=== PATIENT | male | born 1955 | race Caucasian/White ===

== ENCOUNTER → 2017-11-02 | Outpatient (CLI) | payer BC | LOC: M WUC 09:05 | DX: S40.021A Contusion of right upper arm, initial encounter (principal); S43.401A Unspecified sprain of right shoulder joint, initial encounter; X58.XXXA Exposure to other specified factors, initial encounter; Y92.9 Unspecified place or not applicable; Y93.9 Activity, unspecified; M19.011 Primary osteoarthritis, right shoulder | CPT/HCPCS: 73030 ==

== ENCOUNTER → 2019-07-27 | Outpatient (REF) | payer BC | LOC: M LAB REF 19:30 | PROVIDERS: ATTEND Surgery | DX: L72.0 Epidermal cyst (principal) ==

== ENCOUNTER 2021-01-20 13:11 | Emergency (ER) | payer BC ==
[~2021-01-20] VITALS: Ht 170.2 cm; Wt 87.4 kg
[2021-01-20] MEDS ORDERED: VITMTA PO (13:19)
[2021-01-20] MEDS ORDERED: POTA1TAB14 PO (13:19)
[2021-01-20] MEDS ORDERED: HYDR12.55 PO (13:19)
[2021-01-20] MEDS ORDERED: LISI40TA4 PO (13:19)
[2021-01-20] MEDS ORDERED: AMLO1TAB25 PO (13:19)
[2021-01-20] MEDS ORDERED: METO1TAB7 PO (13:19)
[2021-01-20] MEDS ORDERED: BOOSTRIX/ADACEL VACCINE (DIPHTH/PERTUSS/ACELL/TETANUS) 0.5ML SYR IM ONE (13:45)
[2021-01-20] MEDS ORDERED: BACI500O21 TOP (13:51)
[2021-01-20 14:25] VITALS: BP 144/76
== END 2021-01-20 14:27 | disposition home or self-care (01) ==
LOC: M ED 13:11
DX: T21.23XA Burn of second degree of upper back, initial encounter (principal); T31.0 Burns involving less than 10% of body surface; I10 Essential (primary) hypertension; X06.2XXA Exposure to ignition of other clothing and apparel, initial encounter; X03.0XXA Exposure to flames in controlled fire, not in building or structure, initial encounter; Z79.899 Other long term (current) drug therapy; Y92.9 Unspecified place or not applicable; Y93.9 Activity, unspecified; Y99.9 Unspecified external cause status

== ENCOUNTER → 2022-01-11 | Outpatient (REF) | payer BC ==
[~2022-01-11] MED LIST: AMLO1TAB25 PO; BACI500O21 TOP; HYDR12.55 PO; LISI40TA4 PO; METO1TAB7 PO; POTA1TAB14 PO; VITMTA PO
== END ==
LOC: M LAB REF 16:29
PROVIDERS: ATTEND Internal Medicine
DX: R21 Rash and other nonspecific skin eruption (principal); I11.9 Hypertensive heart disease without heart failure

== ENCOUNTER → 2023-02-04 | Outpatient (REF) | payer MEDICARE, OTHER ==
[~2023-02-04] MED LIST changes: +POTA-298 PO; -POTA1TAB14 PO
[2023-02-04 17:36] LABS: IRON (FE) 54 UG/DL (65-175); PERCENT SATURATION 15.9 % (19.7-50.0); TOTAL IRON BINDING CAPACITY 340 UG/DL (250-425)
[2023-02-04 17:40] LABS: FOLATE > 24.0 NG/ML (>5.4); VITAMIN B12 LEVEL 514 PG/ML (211-911)
== END ==
LOC: M LAB REF 16:26
PROVIDERS: ATTEND Internal Medicine
DX: D50.9 Iron deficiency anemia, unspecified (principal)

== ENCOUNTER → 2023-03-07 | Outpatient (REF) | payer MEDICARE, OTHER | LOC: M LAB REF 12:04 | PROVIDERS: ATTEND Internal Medicine | DX: L03.031 Cellulitis of right toe (principal) ==

== ENCOUNTER → 2023-03-14 | Outpatient (REF) | payer MEDICARE ==
[2023-03-14 18:54] LABS: SOURCE, BODY FLUID LFT KNEE; SYNOVIAL FLUID COLOR YELLOW (COLORLESS)
[2023-03-14 19:01] LABS: CRYSTALS, BODY FLUID NONE SEEN (NONE SEEN); SOURCE, BODY FLUID CRYSTALS LFT KNEE
== END ==
LOC: M LAB REF 17:31
PROVIDERS: ATTEND Orthopaedic Surgery
DX: M17.11 Unilateral primary osteoarthritis, right knee (principal)

== ENCOUNTER → 2023-03-20 | Outpatient (CLI) | payer MEDICARE ==
[2023-03-20 17:43] LABS: BASO % 0.5 % (0.0-1.0); EOS # 0.2 10^3/uL (0.0-0.5); EOS % 2.1 % (0.0-3.0); HEMATOCRIT 34.8 % (42.0-52.0); HEMOGLOBIN 11.8 g/dl (13.5-17.5); LYMPH % 23.4 % (24.0-44.0); MEAN CORPUSCULAR HEMOGLOBIN 32.6 pg (27.0-33.0); MEAN CORPUSCULAR HGB CONC 33.9 g/dl (32.0-36.5); MEAN CORPUSCULAR VOLUME 96.1 fl (80.0-96.0); MONO # 1.1 10^3/uL (0.0-0.8); MONO % 12.8 % (2.0-8.0); NEUTROPHILS # 5.2 10^3/uL (1.5-8.5); NEUTROPHILS % 60.8 % (36.0-66.0); PLATELET COUNT, AUTOMATED 333 10^3/uL (150-450); RED BLOOD COUNT 3.62 10^6/uL (4.30-6.10); WHITE BLOOD COUNT 8.5 10^3/uL (4.0-10.0)
[2023-03-20 18:10] LABS: ERYTHROCYTE SEDIMENTATION RATE 31 mm/hr (0-20)
== END ==
LOC: M PLALAB 16:44
PROVIDERS: ATTEND Orthopaedic Surgery
DX: M17.12 Unilateral primary osteoarthritis, left knee (principal)

== ENCOUNTER → 2023-03-28 | Outpatient (REF) | payer MEDICARE ==
[2023-03-28 17:55] LABS: SOURCE, BODY FLUID LFT KNEE; SYNOVIAL FLUID COLOR YELLOW (COLORLESS)
[2023-03-28 18:02] LABS: SOURCE, BODY FLUID GLUCOSE LFT KNEE
[2023-03-28 18:10] LABS: CRYSTALS, BODY FLUID NONE SEEN (NONE SEEN); SOURCE, BODY FLUID CRYSTALS LFT KNEE
== END ==
LOC: M LAB REF 17:16
PROVIDERS: ATTEND Orthopaedic Surgery
DX: M25.462 Effusion, left knee (principal)

== ENCOUNTER 2023-06-04 07:50 | Day surgery (SDC) | payer MEDICARE ==
[~2023-06-04] VITALS: Ht 170.2 cm; Wt 76.5 kg
[~2023-06-04 07:50] MED LIST changes: +FERR325T19 PO; +NS 1,000 ML IV ONE; +OMEP40CA5 PO; +SPIR-10 PO; +fentaNYL 100 MCG/2 ML INJECTION As Ordered ONE; +propofoL 200 MG/20 ML VIAL As Ordered ONE
[2023-06-04] MEDS ORDERED: propofoL 200 MG/20 ML VIAL As Ordered ONE (08:25)
[2023-06-04] MEDS ORDERED: ePHEDrine SULFATE 25 MG/5 ML(5MG/ML) SYRINGE As Ordered ONE (08:50)
[2023-06-04 08:59] VITALS: TEMP 96
[2023-06-04 09:24] VITALS: BP 144/71; O2SAT 98
== END 2023-06-04 09:31 | disposition home or self-care (01) ==
LOC: M OPP 07:50
PROVIDERS: ATTEND Surgery
DX: K64.4 Residual hemorrhoidal skin tags (principal); D50.9 Iron deficiency anemia, unspecified; K22.89 Other specified disease of esophagus; K31.89 Other diseases of stomach and duodenum; K31.A11 Gastric intestinal metaplasia without dysplasia, involving the antrum; K31.A13 Gastric intestinal metaplasia without dysplasia, involving the fundus; Z79.899 Other long term (current) drug therapy
CPT/HCPCS: 43239; 45378; 88305; J3010

== ENCOUNTER → 2024-02-12 | Outpatient (CLI) | payer MEDICARE ==
[~2024-02-12] MED LIST changes: -NS 1,000 ML IV ONE; -fentaNYL 100 MCG/2 ML INJECTION As Ordered ONE; -propofoL 200 MG/20 ML VIAL As Ordered ONE
== END ==
LOC: M PLAIMG 08:18
PROVIDERS: ATTEND Nurse Practitioner Family
DX: I35.0 Nonrheumatic aortic (valve) stenosis (principal)

== ENCOUNTER → 2024-03-01 | Outpatient (CLI) | payer MEDICARE ==
[2024-03-01 09:01] LABS: HEMATOCRIT 38.5 % (42.0-52.0); HEMOGLOBIN 13.1 g/dl (13.5-17.5); MEAN CORPUSCULAR HEMOGLOBIN 32.8 pg (27.0-33.0); MEAN CORPUSCULAR VOLUME 96.3 fl (80.0-96.0); PLATELET COUNT, AUTOMATED 251 10^3/uL (150-450); WHITE BLOOD COUNT 6.2 10^3/uL (4.0-10.0)
[2024-03-01 09:07] LABS: ERYTHROCYTE SEDIMENTATION RATE 30 mm/hr (0-20)
[2024-03-01 09:27] LABS: ALBUMIN 4.2 G/DL (3.2-5.2); ALKALINE PHOSPHATASE 118 U/L (46-116); ALT/SGPT 21 U/L (7.0-40); AST/SGOT 16 U/L (<34); BILIRUBIN,TOTAL 0.2 MG/DL (0.3-1.2); BLOOD UREA NITROGEN 37 MG/DL (9-23); CARBON DIOXIDE LEVEL 22 MMOL/L (20-31); CHLORIDE LEVEL 112 MMOL/L (98-107); CREATININE FOR GFR 0.94 MG/DL (0.70-1.30); GLOMERULAR FILTRATION RATE > 60.0 (>49); GLUCOSE, FASTING 85 MG/DL (74-106); POTASSIUM SERUM 4.3 MMOL/L (3.5-5.1); SODIUM LEVEL 141 MMOL/L (136-145); TOTAL PROTEIN 7.3 G/DL (5.7-8.2)
[2024-03-01 09:30] LABS: INR 1.05; PROTHROMBIN TIME 13.4 SECONDS (12.5-14.5)
== END ==
LOC: M RAD 07:45
PROVIDERS: ATTEND Orthopaedic Surgery
DX: Z01.818 Encounter for other preprocedural examination (principal); Z79.01 Long term (current) use of anticoagulants

== ENCOUNTER → 2024-08-30 | Outpatient (CLI) | payer MEDICARE | LOC: M CARPUL 10:02 | PROVIDERS: ATTEND Internal Medicine | DX: I35.0 Nonrheumatic aortic (valve) stenosis (principal) ==

== ENCOUNTER → 2024-10-29 | Outpatient (CLI) | payer MEDICARE ==
[2024-10-29 15:37] LABS: HEMATOCRIT 35.7 % (42.0-52.0); HEMOGLOBIN 12.2 g/dl (13.5-17.5); MEAN CORPUSCULAR HEMOGLOBIN 32.6 pg (27.0-33.0); MEAN CORPUSCULAR HGB CONC 34.2 g/dl (32.0-36.5); MEAN CORPUSCULAR VOLUME 95.5 fl (80.0-96.0); PLATELET COUNT, AUTOMATED 203 10^3/uL (150-450); RED BLOOD COUNT 3.74 10^6/uL (4.30-6.10); WHITE BLOOD COUNT 7.3 10^3/uL (4.0-10.0)
[2024-10-29 15:42] LABS: ERYTHROCYTE SEDIMENTATION RATE 13 mm/hr (0-20)
[2024-10-29 15:54] LABS: INR 0.95
[2024-10-29 16:10] LABS: ALBUMIN 4.3 G/DL (3.2-5.2); ALKALINE PHOSPHATASE 86 U/L (40-129); ALT/SGPT 34 U/L (7.0-40); AST/SGOT 25 U/L (<34); BILIRUBIN,TOTAL 0.4 MG/DL (0.3-1.2); BLOOD UREA NITROGEN 26 MG/DL (9-23); CALCIUM LEVEL 9.7 MG/DL (8.3-10.6); CARBON DIOXIDE LEVEL 26 MMOL/L (20-31); CHLORIDE LEVEL 108 MMOL/L (98-107); CREATININE FOR GFR 0.72 MG/DL (0.70-1.30); GLOMERULAR FILTRATION RATE > 60.0 (>49); GLUCOSE, FASTING 79 MG/DL (74-106); POTASSIUM SERUM 4.3 MMOL/L (3.5-5.1); SODIUM LEVEL 142 MMOL/L (136-145); TOTAL PROTEIN 7.8 G/DL (5.7-8.2)
== END ==
LOC: M RAD 13:51
PROVIDERS: ATTEND Orthopaedic Surgery
DX: Z01.812 Encounter for preprocedural laboratory examination (principal); M17.12 Unilateral primary osteoarthritis, left knee; Z79.899 Other long term (current) drug therapy

== ENCOUNTER 2025-06-04 07:09 | Inpatient (IN) | payer MEDICARE ==
[~2025-06-04] VITALS: Ht 170.2 cm; Wt 79.5 kg
[~2025-06-04 07:09] MED LIST changes: +LISI40TA10 PO; -LISI40TA4 PO
[2025-06-04] MEDS ORDERED: ASPI-226 PO (07:45)
[2025-06-04] MEDS ORDERED: METO1TAB33 PO (07:45)
[2025-06-04 08:07] LABS: BASO # 0.0 10^3/uL (0.0-0.2); BASO % 0.4 % (0.0-1.0); EOS # 0.2 10^3/uL (0.0-0.5); EOS % 2.1 % (0.0-3.0); LYMPH # 1.7 10^3/uL (1.5-5.0); LYMPH % 23.8 % (24.0-44.0); MONO # 1.1 10^3/uL (0.0-0.8); MONO % 15.5 % (2.0-8.0); NEUTROPHILS # 4.1 10^3/uL (1.5-8.5); NEUTROPHILS % 57.9 % (36.0-66.0); PLATELET COUNT, AUTOMATED 305 10^3/uL (150-450)
[2025-06-04] MEDS: NS (Normal Saline) 0.9% 1,000 ML IV ONE ×2 (08:08→09:46)
[2025-06-04 08:35] LABS: ALT/SGPT 40 U/L (7.0-40); AST/SGOT 50 U/L (<34); CALCIUM LEVEL 8.7 MG/DL (8.3-10.6); CARBON DIOXIDE LEVEL 16 MMOL/L (20-31); CHLORIDE LEVEL 108 MMOL/L (98-107); CREATININE FOR GFR 6.12 MG/DL (0.70-1.30); GLOMERULAR FILTRATION RATE 9.3 (>49); POTASSIUM SERUM 4.1 MMOL/L (3.5-5.1); SODIUM LEVEL 140 MMOL/L (136-145)
[2025-06-04] MEDS ORDERED: HOME MED LIST COMPLETE! XX SCH (10:15)
[2025-06-04] MEDS ORDERED: amLODIPine 10 MG TAB PO SCH (12:05)
[2025-06-04 12:27] LABS: CALCIUM LEVEL 8.4 MG/DL (8.3-10.6); CARBON DIOXIDE LEVEL 16.0 MMOL/L (20-31); CHLORIDE LEVEL 115.0 MMOL/L (98-107); CREATININE FOR GFR 4.9 MG/DL (0.70-1.30); GLOMERULAR FILTRATION RATE 12.2 (>49); POTASSIUM SERUM 3.9 MMOL/L (3.5-5.1); SODIUM LEVEL 143.0 MMOL/L (136-145)
[2025-06-04] MEDS: HEPARIN SOD 5000 UNITS/ML 1 ML VIAL/SYRINGE SQ SCH (13:52)
[2025-06-04] MEDS: AZITHROMYCIN 250 MG TABLET PO SCH (13:53)
[2025-06-04 14:10] LABS: KETONE, URINE AUTO RFX NEGATIVE (NEGATIVE); LEUKOCYTE ESTERASE UR AUTO RFX NEGATIVE (NEGATIVE); MUCUS, URINE RFX SMALL (NEGATIVE); NITRITE, URINE AUTO RFX NEGATIVE (NEGATIVE); RBC, URINE AUTO RFX 18 /HPF (0-3); SQUAM EPITHELIAL CELL UR AURFX 2 /HPF (0-6); TRANSITIONAL EPITHELIAL AU RFX 1 /HPF; WBC, URINE AUTO RFX 4 /HPF (0-3)
[2025-06-04] MEDS: SODIUM BICARBONATE 75 MEQ in NS 0.45% 1,000 ML IV SCH (15:05)
[2025-06-04 17:05] VITALS: BP 129/63; TEMP 97.2; O2SAT 99
[2025-06-04 17:47] LABS: SODIUM,RANDOM URINE 46.0 MMOL/L
[2025-06-04 17:55] LABS: UREA NITROGEN RANDOM URINE 466.0 MG/DL
[2025-06-04 19:01] VITALS: BP 120/70; TEMP 97.6; O2SAT 98
[2025-06-05 00:05] VITALS: BP 138/73; TEMP 97.2; O2SAT 98
[2025-06-05 04:33] VITALS: BP 140/67; TEMP 97; O2SAT 97
[2025-06-05 05:27] LABS: PLATELET COUNT, AUTOMATED 251 10^3/uL (150-450)
[2025-06-05 05:50] LABS: CALCIUM LEVEL 7.9 MG/DL (8.3-10.6); CARBON DIOXIDE LEVEL 21.0 MMOL/L (20-31); CHLORIDE LEVEL 113.0 MMOL/L (98-107); CREATININE FOR GFR 1.42 MG/DL (0.70-1.30); GLOMERULAR FILTRATION RATE 53.8 (>49); MAGNESIUM LEVEL 1.5 MG/DL (1.8-2.4); POTASSIUM SERUM 3.6 MMOL/L (3.5-5.1); SODIUM LEVEL 145.0 MMOL/L (136-145)
[2025-06-05 08:00] VITALS: BP 150/77; TEMP 97.4; TEMP 98.8; O2SAT 97
[2025-06-05] MEDS ORDERED: ACETAMINOPHEN 325 MG TAB PO PRN (08:40)
[2025-06-05] MEDS: amLODIPine 10 MG TAB PO SCH (08:57)
[2025-06-05] MEDS: ASPIRIN 81 MG ENTERIC TABLET PO SCH (08:57)
[2025-06-05] MEDS: OMEPRAZOLE 20MG CAP PO SCH (08:57)
[2025-06-05] MEDS: METOPROLOL SUCC. 100 MG *XL* TAB PO SCH (08:58)
[2025-06-05] MEDS: MAG SULF 1GM/100ML (MAG RUN) 1 GM in IV 1 EA IV ONE ×2 (08:59→14:52)
[2025-06-05] MEDS ORDERED: amLODIPine 10 MG TAB PO SCH (09:00)
[2025-06-05 12:00] VITALS: BP 128/65; TEMP 98.2; O2SAT 96
[2025-06-05 16:00] VITALS: BP 110/62; TEMP 98.6; O2SAT 96
[2025-06-05 20:00] VITALS: BP 162/76; TEMP 97.6; O2SAT 99
[2025-06-06 04:00] VITALS: BP 144/66; TEMP 98.4; O2SAT 99
[2025-06-06 05:45] LABS: PLATELET COUNT, AUTOMATED 230 10^3/uL (150-450)
[2025-06-06 06:23] LABS: CALCIUM LEVEL 8.1 MG/DL (8.3-10.6); CARBON DIOXIDE LEVEL 27 MMOL/L (20-31); CHLORIDE LEVEL 108 MMOL/L (98-107); CREATININE FOR GFR 0.72 MG/DL (0.70-1.30); GLOMERULAR FILTRATION RATE > 90.0 (>49); MAGNESIUM LEVEL 1.6 MG/DL (1.8-2.4); POTASSIUM SERUM 3.9 MMOL/L (3.5-5.1); SODIUM LEVEL 144 MMOL/L (136-145)
[2025-06-06 08:34] VITALS: BP 151/70; TEMP 97.4; O2SAT 97
[2025-06-06 08:36] VITALS: BP 151/70
[2025-06-06] MEDS: MAG SULF 1GM/100ML (MAG RUN) 1 GM in IV 1 EA IV SCH (08:38)
== END 2025-06-06 11:42 | disposition home or self-care (01) | DRG 372 ==
LOC: M ED 07:09 → M ED INP 11:09 → M ICU 16:56
PROVIDERS: ADMIT Internal Medicine; ATTEND Internal Medicine
DX: A04.5 Campylobacter enteritis (principal); N17.9 Acute kidney failure, unspecified; E87.20 Acidosis, unspecified; I10 Essential (primary) hypertension; E78.5 Hyperlipidemia, unspecified; M19.041 Primary osteoarthritis, right hand; M19.042 Primary osteoarthritis, left hand; K21.9 Gastro-esophageal reflux disease without esophagitis; D64.9 Anemia, unspecified; E83.42 Hypomagnesemia; Z95.2 Presence of prosthetic heart valve; Z96.652 Presence of left artificial knee joint; Z79.82 Long term (current) use of aspirin; Z79.899 Other long term (current) drug therapy

== ENCOUNTER 2025-06-11 07:17 | Emergency (ER) | payer MEDICARE ==
[~2025-06-11] VITALS: Ht 170.2 cm; Wt 81.3 kg
[~2025-06-11 07:17] MED LIST changes: +ASPI-226 PO; +METO1TAB33 PO
[2025-06-11 08:51] LABS: BASO # 0.0 10^3/uL (0.0-0.2); BASO % 0.7 % (0.0-1.0); EOS # 0.3 10^3/uL (0.0-0.5); EOS % 5.9 % (0.0-3.0); LYMPH # 1.0 10^3/uL (1.5-5.0); LYMPH % 19.2 % (24.0-44.0); MONO # 0.8 10^3/uL (0.0-0.8); MONO % 14.4 % (2.0-8.0); NEUTROPHILS # 3.2 10^3/uL (1.5-8.5); NEUTROPHILS % 59.4 % (36.0-66.0); PLATELET COUNT, AUTOMATED 408 10^3/uL (150-450)
[2025-06-11 09:01] LABS: ERYTHROCYTE SEDIMENTATION RATE 86 mm/hr (0-20)
[2025-06-11 09:15] LABS: INR 0.93
[2025-06-11 09:16] LABS: C REACTIVE PROTEIN QUANTITATIV 8.28 MG/DL (<1.0)
[2025-06-11 09:38] LABS: ALT/SGPT 37 U/L (7.0-40); AST/SGOT 29 U/L (<34); CALCIUM LEVEL 9.3 MG/DL (8.3-10.6); CARBON DIOXIDE LEVEL 25 MMOL/L (20-31); CHLORIDE LEVEL 110 MMOL/L (98-107); CREATININE FOR GFR 0.67 MG/DL (0.70-1.30); GLOMERULAR FILTRATION RATE > 90.0 (>49); POTASSIUM SERUM 4.4 MMOL/L (3.5-5.1); SODIUM LEVEL 146 MMOL/L (136-145)
[2025-06-11] MEDS ORDERED: CEPH500C PO (12:03)
[2025-06-11 12:13] VITALS: BP 160/76; TEMP 97.5; O2SAT 96
== END 2025-06-11 12:15 | disposition home or self-care (01) ==
LOC: M ED 07:17
DX: L03.115 Cellulitis of right lower limb (principal); I10 Essential (primary) hypertension; Z79.1 Long term (current) use of non-steroidal anti-inflammatories (NSAID); Z79.2 Long term (current) use of antibiotics; Z79.899 Other long term (current) drug therapy